=== PATIENT | male | born 1985 | race Caucasian/White ===

== ENCOUNTER 2016-12-05 12:50 | Emergency (ER) | payer OTHER ==
[~2016-12-05] VITALS: Ht 188 cm; Wt 81.6 kg
--- NOTE | 2016-12-05 12:55 | NUR ---
AAOX3, CAME TO ER C/O LEFT FLANK PAIN AT 0900, UA DONE AT [facility] SHOWED HEMATURIA, TEMPORARY RELIEF WITH TORADOL 60 IM. NO ACUTE RESP AND CARDIAC DISTRESS NOTED. AWAITING FOR ER
[2016-12-05] MEDS ORDERED: IV NS 0.9% 1,000 ML ONE ×2 (13:05→14:30)
[2016-12-05] MEDS ORDERED: IV SET PRIMARY PUMP SET 1 EA INFUS.SET MC ONE (13:05)
[2016-12-05] MEDS ORDERED: ONDANSETRON HCL/PF 4 MG/2 ML VIAL ONE (13:13)
[2016-12-05] MEDS ORDERED: MORPHINE SULFATE INJ 2 MG/ML DISP.SYRIN ONE (13:13)
[2016-12-05 13:21] LABS: BASOPHILS % (AUTO) 0.2 % (0.0-2.0); EOSINOPHILS # (AUTO) 0.1 /CMM (0.0-0.7); EOSINOPHILS % (AUTO) 0.9 % (0.0-6.0); HEMATOCRIT 43 % (39-51); HEMOGLOBIN 14.2 g/dL (13.5-17.5); LYMPHOCYTES # (AUTO) 0.5 /CMM (0.8-4.8); LYMPHOCYTES % (AUTO) 5.5 % (20.0-44.0); MEAN CORPUSCULAR HEMOGLOBIN 29 PG (26.0-33.0); MEAN CORPUSCULAR HGB CONC 33 g/dl (31.0-36.0); MEAN CORPUSCULAR VOLUME 90 fL (80-96); MONOCYTES # (AUTO) 0.4 /CMM (0.1-1.30); MONOCYTES % (AUTO) 3.8 % (2.0-12.0); NEUTROPHILS # (AUTO) 8.3 /CMM (1.8-8.9); NEUTROPHILS % (AUTO) 89.6 % (43.0-81.0); PLATELET COUNT (AUTO) 241 /CMM (150-450); RDW COEFFICIENT OF VARIATION 13.2 (11.5-15.0); RED BLOOD CELL COUNT(AUTO) 4.82 MIL/uL (4.5-6.0); WHITE BLOOD COUNT (AUTO) 9.3 K/uL (4.3-11.0)
[2016-12-05 13:22] LABS: APPEARANCE,URINE CLOUDY (CLEAR); BILIRUBIN,URINE NEGATIVE (NEGATIVE); BLOOD, URINE NEGATIVE Ery/uL (NEGATIVE); COLOR,URINE YELLOW (YELLOW); KETONES,URINE TRACE (NEGATIVE); LEUKOCYTE ESTERASE ,URINE NEGATIVE (NEGATIVE); NITRITE, URINE NEGATIVE (NEGATIVE); PH,URINE 5.5 (5.0-8.0); PROTEIN,URINE TRACE mg/dl (NEGATIVE); UGLUCOSE NEGATIVE (NEGATIVE); UROBILINOGEN,URINE 0.2 EU/dL (0.2)
[2016-12-05 13:30] LABS: CALCIUM, SERUM 8.9 mg/dL (8.5-10.1); CREATININE 1.2 mg/dL (0.6-1.3)
[2016-12-05] MEDS ORDERED: IV NS 0.9% 1,000 ML BAG IV ONE (13:30)
[2016-12-05] MEDS ORDERED: ONDANSETRON HCL/PF - ER 4 MG/2 ML VIAL IV ONE (13:30)
[2016-12-05] MEDS ORDERED: MORPHINE SULFATE INJ 2 MG/ML DISP.SYRIN IV ONE (13:30)
--- NOTE | 2016-12-05 13:30 | NUR ---
Patient transported for CT.
[2016-12-05 13:39] LABS: ADD URINE CULTURE NO; BACTERIA,URINE Few /HPF (None Seen); RBC,URINE 0-2 /HPF (0-2); SQUAMOUS EPITHELIAL CELL,UR None Seen /HPF (None Seen); WBC,URINE 0-2 /HPF (0-3)
--- NOTE | 2016-12-05 14:05 | NUR ---
cert pharmacy tech at
[2016-12-05] MEDS ORDERED: HYDROMORPHONE 1 MG/1 ML DISP.SYRIN ONE (14:25)
[2016-12-05] MEDS ORDERED: IV SET PRIMARY 1 EA INFUS.SET MC ONE (14:30)
[2016-12-05] MEDS ORDERED: HYDROMORPHONE 1 MG/1 ML DISP.SYRIN IV ONE (14:30)
[2016-12-05] MEDS ORDERED: TAMSULOSIN 0.4 MG CAP.SR.24H PO ONE (15:00)
[2016-12-05] MEDS ORDERED: IV NS 0.9% 1,000 ML IV ONE (15:00)
[2016-12-05] MEDS ORDERED: TAMSULOSIN 0.4 MG CAP.SR.24H ONE (15:30)
--- NOTE | 2016-12-05 15:40 | NUR ---
Patient ambulates to the restroom with gait stable.
[2016-12-05] MEDS ORDERED: KETOROLAC TROMETHAMINE INJ 30 MG/ML VIAL ONE (16:22)
[2016-12-05] MEDS ORDERED: KETOROLAC TROMETHAMINE INJ 60 MG/2 ML VIAL IM ONE (16:30)
[2016-12-05] MEDS ORDERED: KETOROLAC TROMETHAMINE INJ 30 MG/ML VIAL IV ONE (16:30)
--- NOTE | 2016-12-05 16:30 | NUR ---
IV removed. Catheter intact and site benign. Pressure and 4x4 applied to site. No bleeding noted.Patient discharged to home in stable condition. Written and verbal after care instructions given. Patient verbalizes understanding of instruction.
[2016-12-05 16:48] VITALS: BP 125/82
== END 2016-12-05 16:31 | disposition home or self-care (01) ==
LOC: ER 12:55
DX: N20.0 Calculus of kidney (principal)
CPT/HCPCS: 36415; 76770-TC; 80048-TC; 81000-TC; 85025-TC; A4606; J1170; J1885; J2270; J2405; J7030; Z7610

== ENCOUNTER 2020-06-19 13:59 | Emergency (ER) | payer OTHER ==
[~2020-06-19] VITALS: Ht 185.4 cm; Wt 81.6 kg
[2020-06-19 14:06] VITALS: BP 123/84
--- NOTE | 2020-06-19 14:40 | NUR ---
COVID SWAB SENT
--- NOTE | 2020-06-19 15:14 | NUR ---
PATIENT SEEN AND EVALUATED BY DR. RICHARDS.
--- NOTE | 2020-06-19 15:19 | NUR ---
Patient discharged to home in stable condition. Written and verbal after care instructions given. Patient verbalizes understanding of instruction.
== END 2020-06-19 15:20 | disposition home or self-care (01) ==
LOC: ER 14:08
DX: Z20.828 Contact with and (suspected) exposure to other viral communicable diseases (principal)
CPT/HCPCS: 87426; 99283; C9803; U0003